=== PATIENT | female | born 1945 | race American Indian/Alaskan Native ===

== ENCOUNTER 2016-08-17 08:29 | Outpatient (CLI) | payer MEDICARE ==
--- NOTE | 2016-08-17 10:00 | Mammography Report ---
Bilateral mammogram: Compared to 08/20/14. CAD study utilized. Findings: Prominent adipose tissue bilaterally. Benign calcifications and benign density. No mass. Impression: Benign findings. Annual followup recommended. BI-RADS CATEGORY: 2 = Benign ACR BI-RADS MAMMOGRAPHIC CODES: 0 = Needs additional imaging evaluation; 1 = Negative; 2 = Benign; 3 = Probably benign; 4 = Suspicious; 5 = Malignant; 6 = Known biopsy-proven malignancy COMMENT: 1. Dense breast tissue, i.e., adenosis, fibrocystic changes, etc., may obscure an underlying neoplasm. 2. Approximately 10% of cancers are not detected with mammography. 3. A negative mammography report should not delay biopsy if a clinically suspicious mass is present. COMMENT: Patient follow-up letters are generated in [employer].
--- NOTE | 2016-08-17 10:01 | Mammography Report ---
BONE DENSITY STUDY: DEFINITIONS: BMD = Bone Mineral Density T-score = BMD related to mean peak bone mass of young adult (mean expressed in Standard Deviation) Z-score = Age matched BMD expressed in SD World Health Organization (WHO) Diagnostic Criteria Normal T-score > -1 SD Osteopenia T-score between -1 and -2.4 SD Osteoporosis T-score -2.5 SD or below FINDINGS: The weighted average BMD of lumbar spine L1-L4 is 1.258 with a T-score of 0.9. The weighted average BMD of hip is 0.915 with a T-score of -0.7. IMPRESSION: The patient's T-score is diagnostic for normal bone density and low relative risk for fracture. NOTE: BMD is not the only risk factor for fracture; also consider factors such as the patient's age, risk of falling, previous osteoporotic fracture, family history of osteoporotic fractures, current smoker, and low body weight. Kimbrough's triangle is a region of interest in femur, predominantly of trabecular bone. It is not a true anatomic site, and [facility] does not recommend its use clinically.
== END 2016-08-17 08:30 | disposition home or self-care (01) ==
LOC: SPVWC 08:29
PROVIDERS: ATTEND Family Medicine
DX: R92.8 Other abnormal and inconclusive findings on diagnostic imaging of breast (principal); M85.88 Other specified disorders of bone density and structure, other site; I10 Essential (primary) hypertension
CPT/HCPCS: 77080; G0204; 77066

== ENCOUNTER 2017-08-18 10:52 | Outpatient (CLI) | payer MEDICARE ==
--- NOTE | 2017-08-18 16:43 | Mammography Report ---
BILATERAL DIGITAL SCREENING MAMMOGRAM with CAD: 08/18/17 10:52:00 CLINICAL: Routine screening. COMPARISON:08/17/16 and 08/21/15 FINDINGS: The breasts are heterogeneously dense, which may obscure small masses. A left focal asymmetry requires additional imaging. No architectural distortion or suspicious calcifications.The right breast is negative. IMPRESSION: Left focal asymmetry requiring further workup. BI-RADS CATEGORY: 0 -- Additional Imaging Evaluation Required RECOMMENDATION: Recall for left mediolateral and spot magnification MLO and CC views and left breast ultrasound if needed. ACR BI-RADS MAMMOGRAPHIC CODES: 0 = Needs additional imaging evaluation; 1 = Negative; 2 = Benign; 3 = Probably benign; 4 = Suspicious; 5 = Malignant; 6 = Known biopsy-proven malignancy COMMENT: 1. Dense breast tissue, i.e., adenosis, fibrocystic changes, etc., may obscure an underlying neoplasm. 2. Approximately 10% of cancers are not detected with mammography. 3. A negative mammography report should not delay biopsy if a clinically suspicious mass is present. COMMENT: Patient follow-up letters are generated via our [employer] application.
== END 2017-08-18 10:53 | disposition home or self-care (01) ==
LOC: SPVWC 10:52
PROVIDERS: ATTEND Family Medicine
DX: Z12.31 Encounter for screening mammogram for malignant neoplasm of breast (principal); E78.00 Pure hypercholesterolemia, unspecified; I10 Essential (primary) hypertension; M19.90 Unspecified osteoarthritis, unspecified site
CPT/HCPCS: 77067

== ENCOUNTER 2017-08-31 09:18 | Outpatient (CLI) | payer MEDICARE ==
--- NOTE | 2017-09-01 14:14 | Mammography Report ---
LEFT DIGITAL DIAGNOSTIC MAMMOGRAM and LEFT BREAST ULTRASOUND: 08/31/17 09:18:00 CLINICAL: Recalled for asymmetry. COMPARISON:08/18/17 screening FINDINGS: Spot compression views without and with magnification were performed and demonstrate a persistent partially circumscribed focal asymmetry at 6 o'clock approximately 5 cm from the nipple. It has a more irregular shaped on the CC views and is more oval and smooth on lateral and MLO views. In addition, there at least three groups of calcifications with benign morphology. Ultrasound of the left breast (including all four quadrants and the retroareolar area) was performed. An oval mostly smooth nodule versus cyst with low level internal echoes at 12 o'clock 3 cm from the nipple measures 1.2 x 0.4 x 1.1 cm. A benign cyst at 3 o'clock 7 cm from the nipple measures 4 x 1 x 4 mm. An irregular solid mass versus cyst with low level internal echoes at 5 o'clock 4 cm from the nipple measures 6 x 5 x 7 mm. This lesion appears to correlate with the mammographic finding at 6 o'clock 5 cm from the nipple on the mammogram. IMPRESSION: A 7 mm solid mass versus complex 5 to 6 o'clock 4-5 cm from the nipple and a second solid 1.2 cm mass versus complex cyst at 12 o'clock 3 cm from the nipple. Recommend ultrasound guided aspiration/biopsy of these 2 lesions. BI-RADS CATEGORY: 4A--Mildly Suspicious Note: I was unable to speak to the patient regarding these findings at the time of the exam. ACR BI-RADS MAMMOGRAPHIC CODES: 0 = Needs additional imaging evaluation; 1 = Negative; 2 = Benign; 3 = Probably benign; 4 = Suspicious; 5 = Malignant; 6 = Known biopsy-proven malignancy COMMENT: 1. Dense breast tissue, i.e., adenosis, fibrocystic changes, etc., may obscure an underlying neoplasm. 2. Approximately 10% of cancers are not detected with mammography. 3. A negative mammography report should not delay biopsy if a clinically suspicious mass is present. COMMENT: Patient follow-up letters are generated via our [employer] application.
== END 2017-08-31 09:19 | disposition home or self-care (01) ==
LOC: SPVWC 09:18
PROVIDERS: ATTEND Family Medicine
DX: R92.8 Other abnormal and inconclusive findings on diagnostic imaging of breast (principal); N64.89 Other specified disorders of breast

== ENCOUNTER 2017-09-13 08:25 | Outpatient (CLI) | payer MEDICARE ==
--- NOTE | 2017-09-13 13:26 | Ultrasound Report ---
ULTRASOUND GUIDED NEEDLE CORE BIOPSY WITH CLIP PLACEMENT AT 2 SITES LEFT BREAST : 09/13/17 CLINICAL: Suspicious lesions of the left breast at 5 o'clock 4-5 cm from the nipple and at 12 o'clock 3 cm from the nipple. COMPARISON :08/31/17 FINDINGS: The procedure was explained to the patient and informed consent was obtained . Ultrasound demonstrated the previously described lesions The skin was prepped with Betadine and anesthetized with 1% lidocaine for the lesion at 5 o'clock. Ultrasound needle aspiration was unsuccessful and ultrasound guided core biopsy was then performed through a small dermatotomy using ultrasound guidance, 2% lidocaine with epinephrine for deep anesthesia and a 14-gauge Achieve biopsy device. Imaging demonstrated satisfactory sampling. 4 cores were obtained and placed in formalin. A localizer clip was then placed within the lesion. Attention was then given to the lesion at 12 o'clock. The skin was prepped with Betadine and anesthetized with 1% lidocaine. Ultrasound needle core biopsy was performed through a small dermatotomy using ultrasound guidance, 2% lidocaine with epinephrine for deep anesthesia and a 14-gauge coaxial Achieve biopsy device. Multiple cores were obtained and placed in formalin. A localizer clip was deployed within the lesion. Hemostasis was obtained both sites with minimal pressure and sterile dressings were applied. The patient tolerated the procedure well and there were no apparent complications. A two-view mammogram demonstrated concordant clip placement at both sites. She was discharged in good condition and was given instructions for wound care and followup. IMPRESSION: Uncomplicated ultrasound-guided needle core biopsy of two left breast masses .
--- NOTE | 2017-09-13 13:31 | Mammography Report ---
LEFT DIGITAL DIAGNOSTIC MAMMOGRAM: 09/13/17 08:25:00 CLINICAL: For clip placement immediately status post ultrasound guided needle biopsy at 2 sites. COMPARISON:08/31/17 FINDINGS: Biopsy clips are identified at 5 o'clock for sample #1 and at 12 o'clock for sample #2. IMPRESSION: Concordant clip placement status post ultrasound biopsy at 2 sites. BI-RADS CATEGORY: 4--Suspicious Pathology pending.
== END 2017-09-13 08:26 | disposition home or self-care (01) ==
LOC: SPVWC 08:25
PROVIDERS: ATTEND Family Medicine
DX: N64.89 Other specified disorders of breast (principal)
CPT/HCPCS: 19083; 19084; 77065; 88112; 88305; A4648